=== PATIENT | female | born 1965 | race Two or more races ===

== ENCOUNTER 2020-07-11 13:54 | Emergency (ER) | payer OTHER ==
[~2020-07-11] VITALS: Ht 152.4 cm; Wt 65.8 kg
== END 2020-07-11 18:46 | disposition home or self-care (01) ==
LOC: ER 13:54
DX: J01.00 Acute maxillary sinusitis, unspecified (principal); J22 Unspecified acute lower respiratory infection; Z20.828 Contact with and (suspected) exposure to other viral communicable diseases

== ENCOUNTER 2022-03-23 09:39 | Emergency (ER) | payer OTHER ==
[~2022-03-23] VITALS: Ht 152.4 cm; Wt 66.7 kg
== END 2022-03-23 12:38 | disposition home or self-care (01) ==
LOC: ER 09:39
DX: S90.121A Contusion of right lesser toe(s) without damage to nail, initial encounter (principal); S90.811A Abrasion, right foot, initial encounter; X58.XXXA Exposure to other specified factors, initial encounter; Y93.89 Activity, other specified; Y92.018 Other place in single-family (private) house as the place of occurrence of the external cause; Y99.9 Unspecified external cause status; I10 Essential (primary) hypertension